=== PATIENT | female | born 1950 | race Two or more races ===

== ENCOUNTER 2023-09-20 17:19 | Emergency (ER) | payer OTHER ==
[~2023-09-20] VITALS: Ht 172.7 cm; Wt 75.0 kg
[2023-09-20 19:02] LABS: Eosinophils # (auto) 0 10 ^3/uL (0-0.8); Lymphocytes # (auto) 0.6 10 ^3/uL (0.4-5.4); Monocytes # (auto) 0.5 10 ^3/uL (0-1.3)
[2023-09-20 19:04] LABS: Basophils # (auto) 0.1 10 ^3/uL (0-0.2); Eosinophils % (auto) 0.8 % (0.0-7.0); Hematocrit 52.4 % (36.0-46.0); Hemoglobin 17.5 g/dL (12.2-16.2); Lymphocytes % (auto) 10.9 % (10.0-50.0); Mean Corpuscular Hemoglobin 35.9 pg (28.0-32.0); Mean Corpuscular Hgb Conc. 33.4 g/dL (32.0-36.0); Mean Corpuscular Volume 107.4 fL (80.0-100.0); Monocytes % (auto) 8.2 % (0.0-12.0); Neutrophils # (auto) 4.7 10 ^3/uL (1.6-8.6); Neutrophils % (auto) 79.1 % (37.0-80.0); Nucleated Red Blood Cells % 0.2 %; Red Blood Cells 4.88 10^6/uL (4.0-5.20); Red Cell Distribution Width 16.1 % (11.8-14.3); White Blood Cell 5.9 10^3/uL (4.4-10.8)
[2023-09-20 19:30] VITALS: PULSE 85; RESP 20; O2SAT 97
[2023-09-20 19:39] LABS: Urine Amorphous Crystal FEW /hpf (None Seen); Urine Bacteria FEW /hpf (None Seen); Urine Blood 3+ /uL (Negative); Urine Clarity Turbid (Clear); Urine Color Yellow (Yellow); Urine Protein, UAD 2+ (Negative); Urine Specific Gravity 1.016 (1.001-1.035); Urine Urobilinogen 3 mg/dL (Negative); Urine WBC 9 /hpf (0 - 5)
[2023-09-20 19:45] VITALS: PULSE 89; RESP 16; O2SAT 93
[2023-09-20 20:16] LABS: INR 1.13 (0.9-1.15); Partial Thromboplastin Time 28.9 SEC (24.5-34.5); Prothrombin Time 11.8 sec (9.3-11.8)
[2023-09-20 20:19] LABS: Alanine Aminotransferase 12 U/L (7-40); Albumin 3.1 g/dL (3.2-4.8); Alkaline Phosphatase 76 U/L (46-116); Anion Gap 21 (5-15); Aspartate Aminotransferase 26 U/L (13-40); BUN/Creatinine Ratio 9.9 (10.0-20.0); Bilirubin, Total 1.5 mg/dL (0.2-1.0); Blood Urea Nitrogen 12 mg/dL (9-23); Calcium 8.1 mg/dL (8.5-10.1); Carbon Dioxide 22 mmol/L (20-30); Chloride 94 mmol/L (98-107); Glucose 68 mg/dL (74-106); Potassium 2.7 mmol/L (3.5-5.1); Sodium 137 mmol/L (136-145); Total Protein 5.8 g/dL (5.7-8.2)
[2023-09-20] MEDS: IOHEXOL 350 MG/ML 100ML IJ ONE (21:05)
[2023-09-20] MEDS: POTASSIUM CHL 20MEQ/100ML 100 ML IV ONE (21:31)
[2023-09-20] MEDS: POTASSIUM CHL 20MEQ/100ML 100 ML IV SCH (21:33)
[2023-09-20 22:57] VITALS: BP 166/82; PULSE 100; RESP 16; TEMP 98.6; O2SAT 98
== END 2023-09-20 23:23 | disposition short-term general hospital (02) ==
LOC: ER 17:19 → EDBD 17:19 → ER 23:23
DX: I63.9 Cerebral infarction, unspecified (principal); I10 Essential (primary) hypertension; Z92.82 Status post administration of tPA (rtPA) in a different facility within the last 24 hours prior to admission to current facility
CPT/HCPCS: 36415; 70450; 70496; 71045; 80053; 81001; 84484; 85025; 85610; 85730; 93005; 96360; 99285; J3480; Q9967